=== PATIENT | female | born 1955 | race Caucasian/White ===

== ENCOUNTER 2020-10-20 11:13 | Inpatient (IN) | payer BC, OTHER ==
[~2020-10-20] VITALS: Ht 157.5 cm; Wt 83.3 kg
--- NOTE | 2020-10-20 11:32 | NUR ---
PT BIBA. PER EMS PT HAS HAD COUGH AND FEVER FOR ABOUT A WEEK. PT STATES NO CONTACT WITH COVID POS PT. PT HAS FEVER OF 102.7, EMS GAVE 1000MG OF TYLENOL AND 4MG OF ZOFRAN AT 1100. PT RESTING IN [facility], MONITORING IN PLACE, [place] AT THIS TIME, TM.
[2020-10-20] MEDS ORDERED: KETOROLAC 30 MG/1 ML ONE (11:49)
[2020-10-20 11:57] LABS: BASOPHILS % (AUTO) 1 % (0-1); EOSINOPHILS % (AUTO) 0 % (1-7); LYMPHOCYTES % (AUTO) 12 % (22-44); MEAN CORPUSCULAR HEMOGLOBIN 30.8 pg (27.0-34.8); MEAN CORPUSCULAR HGB CONC 34.8 g/dL (32.4-35.8); MEAN PLATELET VOLUME 8.6 fL (7.4-10.4); MONOCYTES % (AUTO) 8 % (2-9); NEUTROPHILS % (AUTO) 79 % (42-75); PLATELET COUNT 184 x10^3/uL (130-400); RED BLOOD COUNT 4.46 x10^6/uL (3.82-5.3)
[2020-10-20] MEDS ORDERED: SODIUM CHLORIDE 0.9% 1,000ML IVBOLUS ONE (12:00)
[2020-10-20] MEDS ORDERED: KETOROLAC 15 MG/1ML IVPush ONE (12:00)
[2020-10-20] MEDS ORDERED: PLEASE ENTER HEIGHT AND WEIGHT AND ALLERGIES MC SCH (12:00)
[2020-10-20 12:09] LABS: ALANINE AMINOTRANSFERASE 25 U/L (12-78); ALBUMIN 3.3 g/dL (3.4-5.0); ANION GAP 7 mmol/L (5-15); CHLORIDE 98 mmol/L (98-107); CREATININE 0.81 mg/dL (0.55-1.02)
[2020-10-20 12:11] LABS: ALKALINE PHOSPHATASE 59 U/L (45-117); BILIRUBIN,TOTAL 0.5 mg/dL (0.2-1.0); TOTAL PROTEIN 7.4 g/dL (6.4-8.2)
[2020-10-20] MEDS ORDERED: PLEASE ENTER ALLERGIES MC SCH (12:30)
[2020-10-20] MEDS ORDERED: DEXAMETHASONE 4 MG/ML, 1ML IVPush ONE (12:30)
[2020-10-20] MEDS ORDERED: CEFTRIAXONE 1,000 MG in DEXTROSE 5% 50 ML IVPB ONE (12:30)
[2020-10-20] MEDS ORDERED: DOXYCYCLINE 100 MG in DEXTROSE 5% 250 ML IV ONE (12:30)
--- NOTE | 2020-10-20 12:30 | NUR ---
PT O2 SAT 87-88% ON RA AT THIS TIME. PT PLACED ON 2L NC. WCTM.
--- NOTE | 2020-10-20 12:46 | NUR ---
PT SATTING AT 93% 2L NC AT THIS TIME.
[2020-10-20] MEDS ORDERED: DEXAMETHASONE 4 MG/ML, 5ML ONE (12:49)
--- NOTE | 2020-10-20 14:02 | NUR ---
COVID SWAB COLLECTED AND WALKED DOWN TO LAB.
--- NOTE | 2020-10-20 16:09 | NUR ---
task RN: assumed care of pt on behalf of primary RN for lunch break only. pt resting on gurney in position of comfort. awaiting admit. no family at bedside
--- NOTE | 2020-10-20 16:11 | NUR ---
report to Kathryn LAZARO
--- NOTE | 2020-10-20 18:46 | NUR ---
REPORT TO TEJAS VALLEJO.
[2020-10-20] MEDS ORDERED: ONDANSETRON ODT 4 MG PO PRN (19:30)
[2020-10-20] MEDS ORDERED: POLYETHYLENE GLYCOL 17 GM PACKET PO PRN (19:30)
[2020-10-20] MEDS ORDERED: morphine SULFATE 10 MG/ML, 1ML IVPush PRN (19:30)
[2020-10-20] MEDS ORDERED: hydrALAzine 20 MG/ML, 1ML IVPush PRN (19:30)
[2020-10-20] MEDS ORDERED: BISACODYL 10 MG SUPP PR PRN (19:30)
[2020-10-20] MEDS ORDERED: HYDROcodone/APAP 5/325 TABLET PO PRN (19:30)
[2020-10-20] MEDS ORDERED: DOCUSATE 100 MG CAPSULE PO PRN (19:30)
[2020-10-20] MEDS ORDERED: POTASSIUM CHLORIDE 40 MEQ in SODIUM CHLORIDE 0.9% 500 ML IV ONE (20:00)
[2020-10-20 20:22] VITALS: BP 118/70
[2020-10-20] MEDS ORDERED: MELATONIN 5 MG TABLET PO PRN (21:00)
[2020-10-20] MEDS: ENOXAPARIN 40 MG/0.4 ML SQ SCH (21:33)
[2020-10-20] MEDS: DOXYCYCLINE 100MG TABLET PO SCH (21:33)
[2020-10-20] MEDS: LACTATED RINGERS 1,000 ML IV SCH (21:34)
[2020-10-20] MEDS: INSULIN LISPRO 100 UNITS/ML, PEN SQ-INSULIN SCH (22:55)
[2020-10-21 00:45] VITALS: BP 137/84
[2020-10-21] MEDS ORDERED: OMNIPAQUE 350 MG/ML, 100ML BOTTLE ONE (00:50)
[2020-10-21 00:57] LABS: MICROSCOPIC NOT IND
[2020-10-21 01:34] LABS: RAPID INFLUENZA A Negative (Negative); RAPID INFLUENZA B Negative (Negative)
[2020-10-21 05:36] LABS: D-DIMER 1.76 ug/mlFEU (0.00-0.52)
[2020-10-21 05:56] LABS: ALBUMIN 2.8 g/dL (3.4-5.0); ANION GAP 6 mmol/L (5-15); CALCIUM 7.9 mg/dL (8.5-10.1); CHLORIDE 106 mmol/L (98-107)
[2020-10-21 06:03] LABS: ALANINE AMINOTRANSFERASE 22 U/L (12-78); ALKALINE PHOSPHATASE 52 U/L (45-117); BILIRUBIN,TOTAL 0.6 mg/dL (0.2-1.0); CREATININE 0.67 mg/dL (0.55-1.02); TOTAL PROTEIN 6.7 g/dL (6.4-8.2)
[2020-10-21 06:27] LABS: BASOPHILS % (AUTO) 0 % (0-1); EOSINOPHILS % (AUTO) 0 % (1-7); LYMPHOCYTES % (AUTO) 13 % (22-44); MEAN CORPUSCULAR HEMOGLOBIN 30.6 pg (27.0-34.8); MEAN CORPUSCULAR HGB CONC 34.6 g/dL (32.4-35.8); MEAN PLATELET VOLUME 8.8 fL (7.4-10.4); MONOCYTES % (AUTO) 9 % (2-9); NEUTROPHILS % (AUTO) 78 % (42-75); PLATELET COUNT 229 x10^3/uL (130-400); RED BLOOD COUNT 4.48 x10^6/uL (3.82-5.3); RED CELL DISTRIBUTION WIDTH 14.2 % (9.6-15.2)
[2020-10-21] MEDS: INSULIN LISPRO 100 UNITS/ML, PEN SQ-INSULIN SCH ×4 (07:00→21:37)
[2020-10-21] MEDS ORDERED: PANTOPRAZOLE 40MG TABLET PO SCH (07:30)
[2020-10-21 07:37] VITALS: BP 131/78
[2020-10-21] MEDS: DOXYCYCLINE 100MG TABLET PO SCH ×2 (07:56→21:28)
[2020-10-21] MEDS: ACETAMINOPHEN 325 MG TABLET PO PRN ×2 (07:56→17:32)
[2020-10-21] MEDS: ONDANSETRON 2MG/ML, 2ML IVPush PRN ×2 (09:13→17:32)
[2020-10-21 10:20] LABS: CRYPTOSPORIDIUM ANTIGEN POSITIVE (Negative)
[2020-10-21] MEDS: LACTATED RINGERS 1,000 ML IV SCH (11:17)
[2020-10-21] MEDS: GUAIFENESIN/COD200MG-20MG/10ML LIQUID PO PRN (11:17)
[2020-10-21] MEDS ORDERED: CITA40TA5 PO (12:07)
[2020-10-21] MEDS ORDERED: CYCL10TA2 PO (12:07)
[2020-10-21] MEDS ORDERED: LEVO25CA4 PO (12:07)
[2020-10-21] MEDS ORDERED: PANT40TA6 PO (12:07)
[2020-10-21] MEDS ORDERED: ALPR0.5T PO (12:07)
[2020-10-21] MEDS ORDERED: METF-734 PO (12:07)
[2020-10-21] MEDS ORDERED: CYCLOBENZAPRINE 10 MG TABLET PO PRN (12:30)
[2020-10-21] MEDS: CEFTRIAXONE 2 GM in DEXTROSE 5% 50 ML IVPB SCH (12:35)
[2020-10-21 12:57] VITALS: BP 136/78
[2020-10-21] MEDS ORDERED: NITAZOXANIDE 500 MG PO SCH (14:30)
[2020-10-21] MEDS: ASCORBIC ACID 500 MG TABLET PO SCH (17:32)
[2020-10-21] MEDS: DEXAMETHASONE 1 MG TABLET PO SCH (17:32)
[2020-10-21] MEDS: metFORMIN 500 MG TABLET PO SCH (17:32)
[2020-10-21] MEDS ORDERED: REMDESIVIR 200 MG in SODIUM CHLORIDE 0.9% 250 ML IVPB ONE (18:00)
[2020-10-21 19:23] VITALS: BP 124/71
[2020-10-21] MEDS: ENOXAPARIN 40 MG/0.4 ML SQ SCH (21:28)
[2020-10-21] MEDS: PANTOPRAZOLE 40MG TABLET PO SCH (21:28)
[2020-10-21] MEDS: THIAMINE 100MG TABLET PO SCH (21:28)
[2020-10-22 00:02] VITALS: BP 93/48
[2020-10-22 00:42] VITALS: BP 123/62
[2020-10-22] MEDS: LEVOTHYROXINE 50 MCG TABLET PO SCH (06:15)
[2020-10-22] MEDS: LACTATED RINGERS 1,000 ML IV SCH (06:15)
[2020-10-22] MEDS: INSULIN LISPRO 100 UNITS/ML, PEN SQ-INSULIN SCH ×4 (07:00→22:07)
[2020-10-22 08:00] VITALS: BP 130/82
[2020-10-22] MEDS: ASCORBIC ACID 500 MG TABLET PO SCH ×2 (08:24→18:10)
[2020-10-22] MEDS: metFORMIN 500 MG TABLET PO SCH ×2 (08:24→18:10)
[2020-10-22 09:17] LABS: D-DIMER 1.33 ug/mlFEU (0.00-0.52)
[2020-10-22] MEDS ORDERED: DEXAMETHASONE 4 MG TABLET ONE (09:51)
[2020-10-22] MEDS: PANTOPRAZOLE 40MG TABLET PO SCH ×2 (09:57→22:01)
[2020-10-22] MEDS: CITALOPRAM 20 MG TABLET PO SCH (09:58)
[2020-10-22] MEDS: DEXAMETHASONE 1 MG TABLET PO SCH (10:00)
[2020-10-22] MEDS: THIAMINE 100MG TABLET PO SCH ×2 (10:02→22:01)
[2020-10-22] MEDS: CHOLECALCIFEROL 1,000 UNIT TABLET PO SCH (10:02)
[2020-10-22] MEDS: DOXYCYCLINE 100MG TABLET PO SCH ×2 (10:03→22:01)
[2020-10-22 10:30] LABS: ALANINE AMINOTRANSFERASE 18 U/L (12-78); ALBUMIN 2.5 g/dL (3.4-5.0); ANION GAP 5 mmol/L (5-15); CHLORIDE 107 mmol/L (98-107)
[2020-10-22 10:48] LABS: ALKALINE PHOSPHATASE 47 U/L (45-117); BILIRUBIN,TOTAL 0.3 mg/dL (0.2-1.0); CREATININE 0.63 mg/dL (0.55-1.02); TOTAL PROTEIN 6.4 g/dL (6.4-8.2)
[2020-10-22] MEDS: NITAZOXANIDE 500 MG PO SCH ×3 (11:56→21:00)
[2020-10-22 12:26] VITALS: BP 150/83
[2020-10-22] MEDS: ZINC SULFATE 220 MG CAPSULE PO SCH (13:22)
[2020-10-22] MEDS: CEFTRIAXONE 2 GM in DEXTROSE 5% 50 ML IVPB SCH (13:22)
[2020-10-22] MEDS: GUAIFENESIN/COD200MG-20MG/10ML LIQUID PO PRN (13:22)
[2020-10-22] MEDS: REMDESIVIR 100 MG in SODIUM CHLORIDE 0.9% 250 ML IVPB SCH (18:24)
[2020-10-22 21:59] VITALS: BP 147/84
[2020-10-22] MEDS: ENOXAPARIN 40 MG/0.4 ML SQ SCH (22:01)
[2020-10-23] VITALS (7 sets, daily range): BP systolic 119–163; BP diastolic 60–89
[2020-10-23] MEDS: LEVOTHYROXINE 50 MCG TABLET PO SCH (04:59)
[2020-10-23 06:00] LABS: BASOPHILS % (AUTO) 0 % (0-1); EOSINOPHILS % (AUTO) 0 % (1-7); LYMPHOCYTES % (AUTO) 13 % (22-44); MEAN CORPUSCULAR HGB CONC 34.1 g/dL (32.4-35.8); MEAN PLATELET VOLUME 9.3 fL (7.4-10.4); MONOCYTES % (AUTO) 12 % (2-9); NEUTROPHILS % (AUTO) 75 % (42-75); PLATELET COUNT 249 x10^3/uL (130-400); RED BLOOD COUNT 4.26 x10^6/uL (3.82-5.3); RED CELL DISTRIBUTION WIDTH 13.9 % (9.6-15.2)
[2020-10-23 06:09] LABS: CHLORIDE 106 mmol/L (98-107)
[2020-10-23 06:25] LABS: ALANINE AMINOTRANSFERASE 15 U/L (12-78); ALBUMIN 2.5 g/dL (3.4-5.0); ALKALINE PHOSPHATASE 44 U/L (45-117); ANION GAP 8 mmol/L (5-15); BILIRUBIN,TOTAL 0.3 mg/dL (0.2-1.0); CALCIUM 8.1 mg/dL (8.5-10.1); CREATININE 0.53 mg/dL (0.55-1.02); TOTAL PROTEIN 6.5 g/dL (6.4-8.2)
[2020-10-23] MEDS: INSULIN LISPRO 100 UNITS/ML, PEN SQ-INSULIN SCH ×4 (07:00→21:40)
[2020-10-23] MEDS: ASCORBIC ACID 500 MG TABLET PO SCH ×2 (07:31→16:19)
[2020-10-23] MEDS: metFORMIN 500 MG TABLET PO SCH ×2 (07:31→16:19)
[2020-10-23] MEDS: DEXAMETHASONE 1 MG TABLET PO SCH (09:00)
[2020-10-23] MEDS ORDERED: DEXAMETHASONE 4 MG TABLET ONE (09:21)
[2020-10-23] MEDS: CHOLECALCIFEROL 1,000 UNIT TABLET PO SCH (09:25)
[2020-10-23] MEDS: THIAMINE 100MG TABLET PO SCH ×2 (09:26→21:07)
[2020-10-23] MEDS: DOXYCYCLINE 100MG TABLET PO SCH ×2 (09:26→21:07)
[2020-10-23] MEDS: PANTOPRAZOLE 40MG TABLET PO SCH ×2 (09:26→21:07)
[2020-10-23] MEDS: NITAZOXANIDE 500 MG PO SCH ×3 (09:26→21:06)
[2020-10-23] MEDS: CITALOPRAM 20 MG TABLET PO SCH (09:26)
[2020-10-23] MEDS: ZINC SULFATE 220 MG CAPSULE PO SCH (12:18)
[2020-10-23] MEDS: CEFTRIAXONE 2 GM in DEXTROSE 5% 50 ML IVPB SCH (12:18)
[2020-10-23] MEDS: REMDESIVIR 100 MG in SODIUM CHLORIDE 0.9% 250 ML IVPB SCH (17:49)
[2020-10-23] MEDS: GUAIFENESIN/COD200MG-20MG/10ML LIQUID PO PRN (18:15)
[2020-10-23] MEDS: ENOXAPARIN 40 MG/0.4 ML SQ SCH (21:06)
[2020-10-24 03:00] VITALS: BP 125/77
[2020-10-24] MEDS: LEVOTHYROXINE 50 MCG TABLET PO SCH (06:34)
[2020-10-24 07:00] LABS: ANION GAP 6 mmol/L (5-15); CALCIUM 8.1 mg/dL (8.5-10.1); CHLORIDE 107 mmol/L (98-107)
[2020-10-24] MEDS: INSULIN LISPRO 100 UNITS/ML, PEN SQ-INSULIN SCH ×4 (07:00→21:55)
[2020-10-24 07:01] LABS: CREATININE 0.64 mg/dL (0.55-1.02)
[2020-10-24] MEDS ORDERED: DEXAMETHASONE 4 MG TABLET ONE (07:49)
[2020-10-24 08:08] VITALS: BP 142/77
[2020-10-24] MEDS: DOXYCYCLINE 100MG TABLET PO SCH ×2 (08:12→21:42)
[2020-10-24] MEDS: ASCORBIC ACID 500 MG TABLET PO SCH ×2 (08:12→17:18)
[2020-10-24] MEDS: CITALOPRAM 20 MG TABLET PO SCH (08:13)
[2020-10-24] MEDS: PANTOPRAZOLE 40MG TABLET PO SCH ×2 (08:15→21:42)
[2020-10-24] MEDS: CHOLECALCIFEROL 1,000 UNIT TABLET PO SCH (08:15)
[2020-10-24] MEDS: THIAMINE 100MG TABLET PO SCH ×2 (08:15→21:42)
[2020-10-24] MEDS: metFORMIN 500 MG TABLET PO SCH ×2 (08:18→17:18)
[2020-10-24] MEDS: DEXAMETHASONE 1 MG TABLET PO SCH (08:22)
[2020-10-24] MEDS: NITAZOXANIDE 500 MG PO SCH ×3 (08:32→21:42)
[2020-10-24] MEDS: ZINC SULFATE 220 MG CAPSULE PO SCH (13:00)
[2020-10-24] MEDS: CEFTRIAXONE 2 GM in DEXTROSE 5% 50 ML IVPB SCH (13:00)
[2020-10-24 13:19] VITALS: BP 154/84
[2020-10-24] MEDS: REMDESIVIR 100 MG in SODIUM CHLORIDE 0.9% 250 ML IVPB SCH (17:17)
[2020-10-24 21:38] VITALS: BP 121/80
[2020-10-24] MEDS: ENOXAPARIN 40 MG/0.4 ML SQ SCH (21:41)
[2020-10-25] MEDS ORDERED: THIA100T67 PO (00:19)
[2020-10-25] MEDS ORDERED: ZINC220C8 PO (00:19)
[2020-10-25] MEDS ORDERED: DOXY100T PO (00:19)
[2020-10-25] MEDS ORDERED: ASCO500T9 PO (00:19)
[2020-10-25] MEDS ORDERED: DEXA6TAB PO (00:19)
[2020-10-25] MEDS ORDERED: MELA5TAB14 PO (00:19)
[2020-10-25] MEDS ORDERED: CHOL10003 PO (00:19)
[2020-10-25 01:45] VITALS: BP 162/87
[2020-10-25] MEDS: LEVOTHYROXINE 50 MCG TABLET PO SCH (06:05)
[2020-10-25 06:36] LABS: ALBUMIN 2.5 g/dL (3.4-5.0); ANION GAP 7 mmol/L (5-15); CALCIUM 8.2 mg/dL (8.5-10.1); CHLORIDE 108 mmol/L (98-107)
[2020-10-25 06:42] LABS: ALANINE AMINOTRANSFERASE 21 U/L (12-78); ALKALINE PHOSPHATASE 41 U/L (45-117); BILIRUBIN,TOTAL 0.4 mg/dL (0.2-1.0); CREATININE 0.61 mg/dL (0.55-1.02); TOTAL PROTEIN 6.2 g/dL (6.4-8.2)
[2020-10-25 08:07] VITALS: BP 131/85
[2020-10-25] MEDS: INSULIN LISPRO 100 UNITS/ML, PEN SQ-INSULIN SCH ×4 (09:00→21:00)
[2020-10-25] MEDS ORDERED: POTASSIUM CHLORIDE 20 MEQ TAB.ER.PRT PO ONE (09:00)
[2020-10-25] MEDS: NITAZOXANIDE 500 MG PO SCH (09:09)
[2020-10-25] MEDS: CITALOPRAM 20 MG TABLET PO SCH (09:10)
[2020-10-25] MEDS: ASCORBIC ACID 500 MG TABLET PO SCH ×2 (09:10→17:08)
[2020-10-25] MEDS: PANTOPRAZOLE 40MG TABLET PO SCH ×2 (09:10→20:16)
[2020-10-25] MEDS: metFORMIN 500 MG TABLET PO SCH ×2 (09:10→17:08)
[2020-10-25] MEDS: THIAMINE 100MG TABLET PO SCH ×2 (09:10→20:16)
[2020-10-25] MEDS: CHOLECALCIFEROL 1,000 UNIT TABLET PO SCH (09:10)
[2020-10-25] MEDS: DOXYCYCLINE 100MG TABLET PO SCH ×2 (09:10→20:16)
[2020-10-25] MEDS: DEXAMETHASONE 1 MG TABLET PO SCH (09:10)
[2020-10-25 12:01] VITALS: BP 145/75
[2020-10-25] MEDS: ZINC SULFATE 220 MG CAPSULE PO SCH (12:25)
[2020-10-25] MEDS: CEFTRIAXONE 2 GM in DEXTROSE 5% 50 ML IVPB SCH (12:25)
[2020-10-25] MEDS: REMDESIVIR 100 MG in SODIUM CHLORIDE 0.9% 250 ML IVPB SCH (18:00)
[2020-10-25 19:42] VITALS: BP 128/81
[2020-10-25] MEDS: ENOXAPARIN 40 MG/0.4 ML SQ SCH (20:16)
[2020-10-26 01:21] VITALS: BP 116/70
[2020-10-26] MEDS: LEVOTHYROXINE 50 MCG TABLET PO SCH (05:35)
[2020-10-26 05:58] LABS: BASOPHILS % (AUTO) 0 % (0-1); EOSINOPHILS % (AUTO) 1 % (1-7); LYMPHOCYTES % (AUTO) 26 % (22-44); MEAN CORPUSCULAR HEMOGLOBIN 30.3 pg (27.0-34.8); MEAN CORPUSCULAR HGB CONC 34.9 g/dL (32.4-35.8); MEAN PLATELET VOLUME 8.1 fL (7.4-10.4); MONOCYTES % (AUTO) 11 % (2-9); NEUTROPHILS % (AUTO) 62 % (42-75); PLATELET COUNT 401 x10^3/uL (130-400); RED CELL DISTRIBUTION WIDTH 13.9 % (9.6-15.2)
[2020-10-26 06:15] LABS: ANION GAP 7 mmol/L (5-15); CALCIUM 7.8 mg/dL (8.5-10.1); CHLORIDE 109 mmol/L (98-107)
[2020-10-26 06:17] LABS: CREATININE 0.63 mg/dL (0.55-1.02)
[2020-10-26] MEDS ORDERED: POTASSIUM CHLORIDE 20 MEQ TAB.ER.PRT PO ONE (07:00)
[2020-10-26 07:53] VITALS: BP 147/86
[2020-10-26] MEDS: metFORMIN 500 MG TABLET PO SCH (07:58)
[2020-10-26] MEDS: CITALOPRAM 20 MG TABLET PO SCH (07:58)
[2020-10-26] MEDS: THIAMINE 100MG TABLET PO SCH (07:58)
[2020-10-26] MEDS: PANTOPRAZOLE 40MG TABLET PO SCH (07:58)
[2020-10-26] MEDS: DOXYCYCLINE 100MG TABLET PO SCH (07:59)
[2020-10-26] MEDS: ASCORBIC ACID 500 MG TABLET PO SCH (07:59)
[2020-10-26] MEDS: DEXAMETHASONE 1 MG TABLET PO SCH (07:59)
[2020-10-26] MEDS: INSULIN LISPRO 100 UNITS/ML, PEN SQ-INSULIN SCH ×2 (08:00→11:12)
[2020-10-26] MEDS: CHOLECALCIFEROL 1,000 UNIT TABLET PO SCH (08:21)
[2020-10-26] MEDS: CEFTRIAXONE 2 GM in DEXTROSE 5% 50 ML IVPB SCH (11:13)
[2020-10-26] MEDS: ZINC SULFATE 220 MG CAPSULE PO SCH (12:32)
== END 2020-10-26 13:36 | disposition home or self-care (01) | DRG 177 ==
LOC: ED 12:00 → EDIP 13:43 → 3N 19:52
PROVIDERS: ADMIT Family Medicine; ATTEND Internal Medicine
PROC: XW033E5 Introduction of Remdesivir Anti-infective into Peripheral Vein, Percutaneous Approach, New Technology Group 5 (ICD-10-PCS; principal; 2020-10-20)
DX: U07.1 COVID-19 (principal); J12.82 Pneumonia due to coronavirus disease 2019; J12.81 Pneumonia due to SARS-associated coronavirus; E87.1 Hypo-osmolality and hyponatremia; A07.2 Cryptosporidiosis; E11.9 Type 2 diabetes mellitus without complications; E78.5 Hyperlipidemia, unspecified; E87.6 Hypokalemia; Z87.891 Personal history of nicotine dependence; G89.29 Other chronic pain; R26.2 Difficulty in walking, not elsewhere classified; Z91.81 History of falling; Z88.5 Allergy status to narcotic agent
CPT/HCPCS: 36415; 70450; 71045; 71275; 80048; 80053; 80321; 81003; 82728; 82962; 83036; 83605; 83615; 83735; 84100; 84145; 85025; 85379; 85384; 86140; 87040; 87046; 87328; 87329; 87400; 87806; 89055; 93005; 96361; 96365; G0378; J0696; J1100; J1650; J1885; J2405; J3480; J7060; Q9967; U0005; G0475; G0480; J1815; J7030; J7040; J7050; J7120; U0003